=== PATIENT | male | born 1970 | race Caucasian/White ===

== ENCOUNTER → 2023-08-12 14:50 | Outpatient (REF) | payer OTHER, SELFPAY | LOC: DHCBC MAIN 14:50 | PROVIDERS: ATTENDING PHYSICIAN Internal Medicine Cardiovascular Disease | DX: I10 Essential (primary) hypertension (principal); R00.2 Palpitations | CPT/HCPCS: 93306 ==

== ENCOUNTER → 2023-09-21 09:52 | Outpatient (REF) | payer OTHER, SELFPAY | LOC: RAD 09:52 | PROVIDERS: ATTENDING PHYSICIAN Otolaryngology; FAMILY PHYSICIAN Physician Assistant Medical | DX: R13.12 Dysphagia, oropharyngeal phase (principal); K21.9 Gastro-esophageal reflux disease without esophagitis | CPT/HCPCS: 74221 ==

== ENCOUNTER 2023-10-15 07:17 | Emergency (ER) | payer OTHER, SELFPAY ==
[2023-10-15 07:21] VITALS: BP 123/95
[2023-10-15 08:46] VITALS: BP 128/90
--- NOTE | 2023-10-15 09:02 | ED.GENMED ---
History of Present Illness
General
Chief Complaint: Abdominal Pain
Source: patient
Exam Limitations: none
Time Seen by Provider: 10/15/23 08:43
Nursing documentation reviewed up to this point in time: agreed with
Travel History
Have you had any contact with someone who has COVID-19?: No
Do you have any symptoms of coronavirus? Fever > 100 degrees, chills, cough, shortness of breath, sore throat, loss of taste or smell, muscle aches, or headache?: No
History of Present Illness
History of Present Illness:
52-year-old male presents emergency department complaining of left lower quadrant abdominal pain, and mid lower abdominal pain for 3 days. He denies any diarrhea or constipation. He denies any previous pain such as this. It hurts when he walks or
bends over.
Past History
Past History
ED Past Medical History: HTN
ED Past Surgical History: None
Social History
Tobacco: Non-smoker
Alcohol: Chronic alcoholic
Drug: Former user
Review of Systems
Review of Systems
Allergies reviewed?: Yes
All Other Systems: Not applicable
Constitutional: Reports no symptoms
EENT: Reports no symptoms
Respiratory: Reports no symptoms
Cardiac: Reports no symptoms
ABD/GI: Reports abdominal pain
: Reports no symptoms
Musculoskeletal: Reports no symptoms
Skin: Reports no symptoms
Neurological: Reports no symptoms
Endocrine: Reports no symptoms
Hematologic/Lymphatic: Reports no symptoms
Psychiatric: Reports no symptoms
Phy Exam
Physical Exam
Physical Exam:
Physical Exam
General: no apparent distress, not acutely ill
Neck: supple. no meningeal signs. normal posterior pharynx
Heart: s1/s2 regular rate and rhythm, no murmur. equal radial
pulses.
HEENT: Pupils equal round reactive to light, EOMI
Lungs: no acute respiratory distress. clear bilaterally
Abdomen: normal bowel sounds. Left lower quadrant tenderness, no rebound or guarding. No CVAT
Neuro: alert and oriented. no focal neurological deficits cranial nerves II through XII intact
Skin: no rash
Psychiatric: well kept. interactive and cooperative
Extremities: no edema. no calf tenderness. negative homans. good distal pulses
Course
Orders/Labs/Results
Orders:
Orders
10/15/23 09:01
CT Abd/Pel (IV only)-DH only Urgent
Comment:
Reason For Exam: mid and LLQ abdominal pain 3 days
Urinalysis Reflex To Culture Urgent
10/15/23 09:10
Complete Blood Count/With Diff Urgent
Comprehensive Metabolic Panel Urgent
Lipase Urgent
10/15/23 10:45
Amoxicillin 875 mg/Clav 125 mg [Augmentin 875 mg/125 mg] 1 tablet PO NOW STA
Ketorolac [Toradol] 15 mg IV NOW STA
Abnormal Lab Results
10/15/23
09:10
Absolute Monos (auto) 0.7 H 10^3/uL
(0.1-0.6)
Sodium 133 L mmol/L
(135-145)
Creatinine 0.6 L mg/dL
(0.7-1.3)
Glucose 108 H mg/dl
(70-99)
10/15/23 09:10
10/15/23 09:10
Vital Signs
Initial and Last Documented VS:
Initial Vital Signs
Temp Pulse Resp BP Pulse Ox
98.5 F 87 18 123/95 100
10/15/23 07:21 10/15/23 07:21 10/15/23 07:21 10/15/23 07:21 10/15/23 07:21
Last Documented Vital Signs
Temp Pulse Resp BP Pulse Ox
98.5 F 79 16 128/90 96
10/15/23 07:21 10/15/23 08:46 10/15/23 08:46 10/15/23 08:46 10/15/23 08:46
MDM/Problems Addressed
Differential Diagnosis Includes:
diverticulitis, diverticular abscess
MDM/Problems Addressed:
52-year-old male with sigmoid diverticulitis, no abscess. Vital signs stable. Treat with Augmentin, follow-up with GI.
Chronic conditions affecting care: HTN
Acute Exacerbation and/or Progression of Chronic Illness: HTN
*Radiology
Radiology exam reviewed: radiology read reviewed (ct a/p sigmoid diverticulitis)
*Pulse Oximetry
Patient hypoxic: no
*EKG
Interpreted by ED Provider?: NA
*Chief Dispatcher Service Interpretation
Rate: Chief Dispatcher Service- N/A
*Critical Care Note
Total Time (30-74mins, 75-104mins- exclusive of procedures): Not Applicable
Patient Management
Escalation/DeEscalation of care consider admission/obs:
Admit not indicated
ED Attending Note
-
Portions of this chart may have been created with voice recognition software.� Occasional wrong word or��sound alike� substitutions may have occurred due to the inherent limitations of voice recognition software.
Discharge Plan
Departure
Patient Disposition: Home (Routine Discharge)
Date of Disposition: 10/15/23
Time of Disposition: 10:50
Patient with high blood pressure during this ER visit?: Yes
Condition: Good
Discharge Problem:
Diverticulitis of sigmoid colon
Instructions: Diverticulitis (DC), BLOOD PRESSURE
Prescriptions:
New
amoxicillin-pot clavulanate 875-125 mg tablet
1 tab PO BID Qty: 14 0RF
No Action
losartan 25 MG tablet
50 mg PO DAILY
Referrals:
Yolis German PA-C [Family Provider] - Call in 1-3 days for appt
Zhanna Hoskins MD [Active] - Call in 1-3 days for appt
Interventions
Interventions:
*Risk Screen - Suicide Last Done: 10/15/23 08:47
*General Assessment Last Done: 10/15/23 08:47
*Neglect/Abuse Screening Last Done: 10/15/23 08:47
*ED COVID-19 Vaccine History Last Done: 10/15/23 08:47
AW-Ztvmjd-Zkdjfuqdis Assessment Last Done: 10/15/23 08:48
Discharge Date and Time
Print Language: LIBERIAN
[2023-10-15 09:22] LABS: % Basophils 0.6 % (0-2); % Eosinophils 1.7 % (0-6); % Immature Granulocytes 0.2 % (0-0.5); % Lymphocytes 20.7 % (20.5-51.1); % Monocytes 8.5 % (1.7-9.3); % Neutrophils 68.3 % (42.2-75.2); Absolute Basophils 0.1 10^3/uL (0-0.2); Absolute Eosinophils 0.1 10^3/uL (0-0.7); Absolute Lymphocytes 1.8 10^3/uL (1.2-3.4); Absolute Monocytes 0.7 10^3/uL (0.1-0.6); Absolute Neutrophils 5.8 10^3/uL (1.4-6.5); Hematocrit 44.3 % (39.0-52.0); Hemoglobin 15.1 g/dL (13.0-18.0); Mean Corp Hgb Conc. 34.1 g/dL (33.0-37.0); Mean Corpuscular Hgb 29.8 pg (27.0-31.0); Mean Corpuscular Volume 87.4 fL (80.0-94.0); Mean Platelet Volume 8.5 fL (7.4-10.4); Nucleated Red Blood Cells % 0 % (-); Platelet Count 216 10^3/uL (130-400); Red Blood Cell Count 5.07 10^6/uL (4.70-6.10); Red Cell Dist. Width 13.2 % (11.5-14.5); White Blood Cell Count 8.5 10^3/uL (4.8-10.8)
[2023-10-15 09:41] LABS: ALT (SGPT) 17 U/L (0-50); AST (SGOT) 23 U/L (17-59); Albumin 4.2 g/dl (3.5-5.0); Alkaline Phosphatase 67 U/L (38-126); Blood Urea Nitrogen 15 mg/dl (9-20); Calcium 9.3 mg/dl (8.4-10.2); Carbon Dioxide 26 mmol/L (22-30); Chloride 104 mmol/L (98-107); Glucose 108 mg/dl (70-99); Lipase 52 U/L (23-300); Potassium 4.4 mmol/L (3.5-5.1); Sodium 133 mmol/L (135-145); Total Bilirubin 0.8 mg/dl (0.2-1.3); Total Protein 6.9 g/dl (6.3-8.2); eGFR > 60.00
[2023-10-15] MEDS: TORADOL 15 MG IV (10:58)
[2023-10-15] MEDS: AUGMENTIN 875 MG/125 MG 1 TABLET PO (10:58)
[2023-10-15 11:02] VITALS: BP 130/88
== END 2023-10-15 11:05 | disposition home or self-care (01) ==
LOC: EMR 07:17
PROVIDERS: EMERGENCY PHYSICIAN Emergency Medicine; FAMILY PHYSICIAN Physician Assistant Medical
DX: K57.20 Diverticulitis of large intestine with perforation and abscess without bleeding (principal); I10 Essential (primary) hypertension
CPT/HCPCS: 99284; 96374; 74177; 80053; 83690; 85025; Q9967

== ENCOUNTER 2023-11-21 04:58 | Emergency (ER) | payer OTHER, SELFPAY ==
[2023-11-21 05:03] VITALS: BP 151/93
[2023-11-21 05:27] VITALS: BMI 39.6
[2023-11-21 05:48] VITALS: BP 133/88
--- NOTE | 2023-11-21 05:53 | EDRN ---
Pt diagnosed with diverticulitis in October, finished course of augment and felt better for about 1 week. Wednesday morning around 0700, pt developed sharp LLQ abdominal pain. This pain was different from the burning sensation pt had with
diverticulitis. Pt called his doctor and was able to get an appointment on Wednesday. Pt had blood work drawn and was started on cipro and flagyl. Pt felt much improved Wednesday. Pt eating only chicken broth since Wednesday. Around [id number] this
morning, pt woke with sharp LLQ abdominal pain that radiated into his groin which prompted pt to come to the ED. Pt says he say in his car for a bit before deciding to come into the ED for evaluation. Pt denies cp, sob, urinary symptoms,
n/v/d/constipation, fever/chills/cough. While talking with pt, pt noted his pain suddenly disappeared. On physical exam, pt remained pain free.
[2023-11-21 05:58] LABS: % Basophils 0.8 % (0-2); % Eosinophils 2.4 % (0-6); % Immature Granulocytes 0.2 % (0-0.5); % Lymphocytes 30.2 % (20.5-51.1); % Monocytes 9.1 % (1.7-9.3); % Neutrophils 57.3 % (42.2-75.2); Absolute Basophils 0.1 10^3/uL (0-0.2); Absolute Eosinophils 0.1 10^3/uL (0-0.7); Absolute Lymphocytes 1.8 10^3/uL (1.2-3.4); Absolute Monocytes 0.5 10^3/uL (0.1-0.6); Absolute Neutrophils 3.4 10^3/uL (1.4-6.5); Hematocrit 41.9 % (39.0-52.0); Hemoglobin 14.4 g/dL (13.0-18.0); Mean Corp Hgb Conc. 34.4 g/dL (33.0-37.0); Mean Corpuscular Hgb 29.6 pg (27.0-31.0); Mean Corpuscular Volume 86.2 fL (80.0-94.0); Mean Platelet Volume 8.8 fL (7.4-10.4); Nucleated Red Blood Cells % 0 % (-); Platelet Count 221 10^3/uL (130-400); Red Blood Cell Count 4.86 10^6/uL (4.70-6.10); Red Cell Dist. Width 12.7 % (11.5-14.5); White Blood Cell Count 5.9 10^3/uL (4.8-10.8)
[2023-11-21 06:15] LABS: ALT (SGPT) 19 U/L (0-50); AST (SGOT) 33 U/L (17-59); Albumin 4.1 g/dl (3.5-5.0); Alkaline Phosphatase 59 U/L (38-126); Blood Urea Nitrogen 12 mg/dl (9-20); Calcium 9.3 mg/dl (8.4-10.2); Carbon Dioxide 22 mmol/L (22-30); Chloride 103 mmol/L (98-107); Estimated Creatinine Clearance > 125 ml/min; Glucose 95 mg/dl (70-99); Lipase 57 U/L (23-300); Potassium 3.9 mmol/L (3.5-5.1); Sodium 136 mmol/L (135-145); Total Protein 6.6 g/dl (6.3-8.2); eGFR > 60.00
[2023-11-21 06:18] LABS: Urine Albumin Trace (Neg - Trace); Urine Bilirubin Negative (Negative); Urine Character Clear (Clear); Urine Color Amber; Urine Glucose Negative (Negative); Urine Ketone 3+ (Negative); Urine Leukocyte Trace (Negative); Urine Nitrite Negative (Negative); Urine Occult Blood 4+ (Negative); Urine Urobilinogen Negative (Neg - 1+)
--- NOTE | 2023-11-21 06:24 | ED.GENMED ---
History of Present Illness
General
Chief Complaint: Abdominal Pain
Source: patient
Exam Limitations: none
Time Seen by Provider: 11/21/23 06:01
Travel History
Have you had any contact with someone who has COVID-19?: No
Do you have any symptoms of coronavirus? Fever > 100 degrees, chills, cough, shortness of breath, sore throat, loss of taste or smell, muscle aches, or headache?: No
History of Present Illness
History of Present Illness:
This is a 52-year-old male who presents with left-sided abdominal pain. The patient was seen in the emergency department a month ago with diagnosed diverticulitis. He was given Augmentin. He had a string of good days but then had a few days the
week after treatment where he had some off-and-on pain on the left side. He tried to stay on a clear liquid diet. Patient states that the pain would come and go. On Wednesday the morning the pain was severe. He states he called his primary care
doctor. He was about to come back to the emergency department but the pain seemed to dissipate. He would see his primary care doctor as planned Cipro and Flagyl. He denies fevers or vomiting. No dysuria or frequency but does state that he has a
weak stream. Patient does admit that the pain right now is minimal but an hour or 2 ago it was much worse. No vomiting or nausea. Reports his mom had bad diverticulitis.
Past History
Past History
ED Past Medical History: HTN and Other (Diverticulitis,)
ED Past Surgical History: Orthopedic
Social History
Tobacco: Non-smoker
Alcohol: Former
Drug: Former user
Phy Exam
Physical Exam
Physical Exam:
CONSTITUTIONAL Patient alert and oriented to person, place and time. Well-appearing. Vital signs reviewed.
HEAD atraumatic, normocephalic.
EYES eyelids normal to inspection, Pupils equally round and reactive to light, Extraocular muscles intact, Conjunctiva normal, Sclera normal.
NECK normal range of motion, Trachea midline, no jugular venous distention.
RESPIRATORY CHEST No respiratory distress noted, Chest expansion equal, Bilateral breath sounds clear.
CARDIOVASCULAR regular rate and rhythm, Heart sounds normal.
ABDOMEN moderate left lower quadrant tenderness, Bowel sounds normal. No distention.
BACK normal inspection, no obvious deformities
UPPER EXTREMITY range of motion normal, Motor strength normal, no cyanosis, no edema.
LOWER EXTREMITY range of motion normal, Motor strength normal, no cyanosis, no edema.
NEURO Speech normal, No focal motor deficits, [place] coma scale 15, Memory normal, Cranial Nerves intact to screening exam.
SKIN skin warm, dry, and normal in color.
PSYCHIATRIC patient oriented to person place and time, Normal affect.
Course
Orders/Labs/Results
Orders:
Orders
11/21/23 05:24
IV Insert/Care/Rem.- Treatment PRN
11/21/23 05:38
Complete Blood Count/With Diff Urgent
Comprehensive Metabolic Panel Urgent
Lipase Urgent
Urinalysis Reflex To Culture Urgent
Date Specimen was Collected: 11/21/23
Time Specimen was Collected: 05:27
Urine Microscopic Reflex Cult Urgent
11/21/23 05:39
CT Abd/pelvis W Iv Cont Urgent
Comment:
Reason For Exam: Left lower quadrant abdominal pain
Abnormal Lab Results
11/21/23
05:38
Urine Ketones 3+ A
(Negative)
Ur Occult Blood Reflex 4+ A
(Negative)
Leukocyte Esterase Rfl Trace A
(Negative)
Urine RBC 30-40 A /HPF
(0-2)
Urine Bacteria (Reflex) Few A
(Negative)
11/21/23 05:38
11/21/23 05:38
Vital Signs
Initial and Last Documented VS:
Initial Vital Signs
Temp Pulse Resp BP Pulse Ox
98.5 F 78 16 151/93 99
11/21/23 05:03 11/21/23 05:03 11/21/23 05:03 11/21/23 05:03 11/21/23 05:03
Last Documented Vital Signs
Temp Pulse Resp BP Pulse Ox
98.5 F 58 16 133/88 94
11/21/23 05:03 11/21/23 05:48 11/21/23 05:48 11/21/23 05:48 11/21/23 05:48
*Radiology
Radiology exam reviewed: preliminary read by ED provider (kidney stone noted) and radiology read reviewed
*Pulse Oximetry
Patient hypoxic: no
*Critical Care Note
Total Time (30-74mins, 75-104mins- exclusive of procedures): Not Applicable
Data Reviewed
Review of Other/Old Records Reveals: Records (Previous CT report reviewed)
Source: patient
Prescriptions/Medications Considered But Not Given:
Considered IV antibiotics but no evidence of Progressives diverticulitis. Nephrolithiasis noted by CT
Patient Management
Escalation/DeEscalation of care consider admission/obs:
Patient peers well. Given the off-and-on nature there was suspicion for nephrolithiasis. Confirmed by CT. Treat with Flomax, pain control and outpatient follow-up
ED Attending Note
-
Portions of this chart may have been created with voice recognition software.� Occasional wrong word or��sound alike� substitutions may have occurred due to the inherent limitations of voice recognition software.
Discharge Plan
Departure
Patient Disposition: Home (Routine Discharge)
Date of Disposition: 11/21/23
Time of Disposition: 07:17
Patient with high blood pressure during this ER visit?: No
Discharge Problem:
Ureterolithiasis
Instructions: Kidney Stones (DC)
Prescriptions:
New
tamsulosin [Flomax] 0.4 mg capsule
0.4 mg PO HS Qty: 20 0RF
No Action
losartan 100 mg Tablet
100 mg PO DAILY
icosapent ethyl [Vascepa] 1 gram Capsule
1 g PO BID
metronidazole [Flagyl] 500 mg Tablet
500 mg PO TID
ciprofloxacin HCl [Cipro] 500 mg Tablet
500 mg PO BID
tadalafil 20 mg Tablet
20 mg PO DAILY PRN (Reason: sexual activity)
cholecalciferol (vitamin D3) [Vitamin D3] 125 mcg (5,000 unit) Tablet
125 mcg PO DAILY
vitamin K
1 tab PO DAILY
Patient Comments:
pt does not know mg
Referrals:
Pennie Bryan PA [Family Provider] -
Activity Restrictions/Additional Instructions:
Please drink plenty fluids and rest. Please see your doctor and urology in follow-up in the next 3 to 5 days. Use ibuprofen for pain control. Return immediately for fevers, intractable pain, intractable vomiting or any other concerns.
Interventions
Interventions:
*Risk Screen - Suicide Last Done: 11/21/23 05:03
*General Assessment Last Done: 11/21/23 05:03
*Neglect/Abuse Screening Last Done: 11/21/23 05:03
*ED COVID-19 Vaccine History Last Done: 11/21/23 05:13
PP-Lbznmw-Qkwzjxhjsf Assessment Last Done: 11/21/23 05:48
Discharge Date and Time
Print Language: BOLIVIAN
[2023-11-21 07:08] LABS: Urine Bacteria Few (Negative); Urine Red Blood Cell 30-40 /HPF (0-2)
[2023-11-21 08:17] VITALS: BP 126/75
== END 2023-11-21 08:17 | disposition home or self-care (01) ==
LOC: EMR 04:58
PROVIDERS: Emergency Medicine; EMERGENCY PHYSICIAN Emergency Medicine; FAMILY PHYSICIAN Physician Assistant Medical
DX: N13.2 Hydronephrosis with renal and ureteral calculous obstruction (principal)
CPT/HCPCS: 99285; 74177; 80053; 81003; 81015; 83690; 85025; Q9967

== ENCOUNTER → 2024-10-20 14:04 | Outpatient (REF) | payer OTHER, SELFPAY | LOC: DHSLP 14:04 | PROVIDERS: ATTENDING PHYSICIAN Physician Assistant Medical | DX: G47.33 Obstructive sleep apnea (adult) (pediatric) (principal); R06.83 Snoring; E66.9 Obesity, unspecified; Z68.38 Body mass index [BMI] 38.0-38.9, adult; I25.10 Atherosclerotic heart disease of native coronary artery without angina pectoris; L40.9 Psoriasis, unspecified; R09.02 Hypoxemia | CPT/HCPCS: 95800 ==

== ENCOUNTER 2024-12-17 00:18 | Observation (INO) | payer OTHER, SELFPAY ==
[2024-12-16 18:57] VITALS: BP 159/102
[2024-12-16 19:14] VITALS: BP 133/89
--- NOTE | 2024-12-16 19:28 | ED.GENMED ---
History of Present Illness
General
Chief Complaint: Weakness
Time Seen by Provider: 12/16/24 19:11
History of Present Illness
History of Present Illness:
Patient is a 53-year-old male with history of CAD, hypertension, hyperlipidemia presenting to the emergency department with word finding difficulty that is now resolved. Patient states that around 5:30 PM he noticed that he was having word finding
difficulty was using the wrong words and was having difficulty with writing. He does state that he was having some repetitive words as well. He states this is his third episode. Per chart review he was seen here in 2020 for the same however he
did not have any outpatient workup completed afterwards. No numbness tingling. No weakness. No chest pain. No shortness of breath.
He does note that he barely ate any food and only had 1 glass of water today. He does state that he was walking his dog when the symptoms occurred.
Past History
Past History
ED Past Medical History: HTN and Other (Diverticulitis,)
ED Past Surgical History: Orthopedic
Social History
Tobacco: Non-smoker
Alcohol: Former
Drug: Former user
Phy Exam
Physical Exam
Physical Exam:
GENERAL: in no acute distress
HEENT: normocephalic, extraocular movements intact, moist oral mucosa
NECK: normal inspection
RESPIRATORY: no respiratory distress, clear to auscultation bilaterally
CARDIOVASCULAR: regular rate and rhythm
ABDOMEN/: soft, non-distended, non-tender to palpation, no rebound or guarding
EXTREMITIES: non-tender, no edema/swelling
NEUROLOGIC: alert and oriented x 3, cranial nerves II-XII intact, right upper extremity strength 5/5, left upper extremity strength 5/5, right lower extremity strength 5/5, left lower extremity strength 5/5, normal sensation to light touch, normal
voixlh-[id number]-sxrh and gxvy-ek-fwop, gait not tested formally
SKIN: warm
Scores
NIH Stroke Score
Level of Consciousness: 0 - Alert
LOC Questions: 0-Answers both correctly
LOC Commands: 0-Performs both correctly
Best Horizontal Gaze: 0-Normal
Visual [place]: 0=Normal, no visual loss
Facial Palsy: 0=Normal, symmetrical
Motor - Right Arm: 0=No drift 10 seconds
Motor - Left Arm: 0=No drift 10 seconds
Motor - Right Le-No drift 5 seconds
Motor - Left Le-No drift 5 seconds
Limb Ataxia: 0-Absent
Sensation: 0-Normal
Best Language: 0-No aphasia
Dysarthria: 0-Normal
Extinction and Inattention: 0-No abnormality
NIH Total Score:: 0
Course
Orders/Labs/Results
Orders:
Orders
12/16/24 19:00
Electrocardiogram (*1) Urgent
Reason for Study: Fatigue / Weakness
EKG- Treatment ONCE
12/16/24 19:28
CT Head W/o Iv Contrast Urgent
Comment:
Reason For Exam: word finding difficulty, resolved
12/16/24 19:35
Basic Metabolic Panel Urgent
Complete Blood Count/With Diff Urgent
Abnormal Lab Results
12/16/24
19:35
Chloride 109 H mmol/L
(98-107)
Glucose 102 H mg/dl
(70-99)
12/16/24 19:35
12/16/24 19:35
Vital Signs
Initial and Last Documented VS:
Initial Vital Signs
Temp Pulse Resp BP Pulse Ox
98.2 F 86 18 159/102 99
12/16/24 18:57 12/16/24 18:57 12/16/24 18:57 12/16/24 18:57 12/16/24 18:57
Last Documented Vital Signs
Temp Pulse Resp BP Pulse Ox
98.2 F 80 20 150/78 98
12/16/24 18:57 12/16/24 20:57 12/16/24 20:57 12/16/24 20:57 12/16/24 20:57
MDM/Problems Addressed
Differential Diagnosis Includes:
Patient is a 53-year-old male with history of CAD, hypertension, hyperlipidemia presenting to the emergency department with worsening difficulty that started at 530 but has now resolved. On arrival vitals are notable for hypertension and exam shows
no neurodeficits. Concern for TIA especially given that this is his third time he does have a risk factors of. Could be cerebral hypoperfusion given the lack of p.o. and it occurred while he was walking his dog. Will check blood work and CT scan.
EKG per my interpretation normal sinus rhythm. Patient will need admission for further TIA workup.
*Pulse Oximetry
Patient hypoxic: no (99)
*Critical Care Note
Total Time (30-74mins, 75-104mins- exclusive of procedures): Not Applicable
Update Note
Update Note:
CT scan per my interpretation with no obvious hemorrhage or large ischemic infarct. Per the preliminary read no concern for acute ischemia. Given that patient has a risk factors and this is his third episode patient will need admission for MRI and
further testing. Discussed with hospitalist who excepted patient to their service
ED Attending Note
-
Portions of this chart may have been created with voice recognition software.� Occasional wrong word or��sound alike� substitutions may have occurred due to the inherent limitations of voice recognition software.
Discharge Plan
Departure
Patient Disposition: Admit
Date of Disposition: 12/16/24
Time of Disposition: 21:53
Presentation/result/management discussed w/ accepting MD/DO: Hospitalist
Discharge Problem:
Neurological deficit, transient
Prescriptions:
No Action
losartan 100 mg Tablet
100 mg PO DAILY
icosapent ethyl [Vascepa] 1 gram Capsule
1 g PO BID
metronidazole [Flagyl] 500 mg Tablet
500 mg PO TID
ciprofloxacin HCl [Cipro] 500 mg Tablet
500 mg PO BID
tadalafil 20 mg Tablet
20 mg PO DAILY PRN (Reason: sexual activity)
cholecalciferol (vitamin D3) [Vitamin D3] 125 mcg (5,000 unit) Tablet
125 mcg PO DAILY
vitamin K
1 tab PO DAILY
Patient Comments:
pt does not know mg
tamsulosin [Flomax] 0.4 mg capsule
0.4 mg PO HS Qty: 20 0RF
Referrals:
Eloisa German MD [Family Provider, Gynecology]
Interventions
Interventions:
*Risk Screen - Suicide Last Done: 12/16/24 18:57
*General Assessment Last Done: 12/16/24 18:57
*Neglect/Abuse Screening Last Done: 12/16/24 18:57
ED- Cardiac Assessment Last Done: 12/16/24 19:12
ED- Neurological Assessment Last Done: 12/16/24 19:12
ED- Pulmonary Assessment Last Done: 12/16/24 19:12
Discharge Date and Time
Print Language: CROATIAN
[2024-12-16 19:54] LABS: % Basophils 0.5 % (0-2); % Eosinophils 2.1 % (0-6); % Immature Granulocytes 0.2 % (0-0.5); % Lymphocytes 36.5 % (20.5-51.1); % Monocytes 7.6 % (1.7-9.3); % Neutrophils 53.1 % (42.2-75.2); Absolute Eosinophils 0.1 10^3/uL (0-0.7); Absolute Lymphocytes 2.4 10^3/uL (1.2-3.4); Absolute Monocytes 0.5 10^3/uL (0.1-0.6); Absolute Neutrophils 3.5 10^3/uL (1.4-6.5); Hemoglobin 14.8 g/dL (13.0-18.0); Mean Corp Hgb Conc. 35.2 g/dL (33.0-37.0); Mean Corpuscular Hgb 29.8 pg (27.0-31.0); Mean Corpuscular Volume 84.7 fL (80.0-94.0); Mean Platelet Volume 8.5 fL (7.4-10.4); Nucleated Red Blood Cells % 0 % (-); Platelet Count 239 10^3/uL (130-400); Red Blood Cell Count 4.96 10^6/uL (4.70-6.10); Red Cell Dist. Width 13.1 % (11.5-14.5); White Blood Cell Count 6.6 10^3/uL (4.8-10.8)
[2024-12-16 20:00] VITALS: BP 140/99
[2024-12-16 20:16] LABS: Blood Urea Nitrogen 20 mg/dl (9-20); Calcium 9.8 mg/dl (8.4-10.2); Carbon Dioxide 23 mmol/L (22-30); Chloride 109 mmol/L (98-107); Glucose 102 mg/dl (70-99); Potassium 4.1 mmol/L (3.5-5.1); Sodium 140 mmol/L (135-145); eGFR > 60.00
[2024-12-16 20:57] VITALS: BP 150/78
--- NOTE | 2024-12-16 22:06 | HPS.HSE ---
Family Physician
-
Family Physician: Eloisa German
Chief Complaint
-
Word-findings difficulty
History of Present Illness
The patient is a 53-year-old gentleman with past medical history significant for hypertension, hyperlipidemia, coronary artery disease, who presents to the emergency department secondary to word finding difficulty. It is resolved by the time he
came to the emergency department. Symptoms started at approximately 5:30 PM when he noticed he was having trouble with word finding and using the wrong words, and with repetitive words. Symptoms occurred while he was walking his dog today. He was
also having difficulty with writing. This has been his third episode, and has not had formal workup in the outpatient setting. He denies any motor symptoms at this time, no numbness no tingling no headache no chest pain no dyspnea. Patient does
not take daily aspirin. Exercise nuclear stress test July 2023 was negative for ischemia on EKG, normal sestamibi perfusion imaging, ejection fraction of 52%. The patient took 2 baby aspirin at home when this event was happening.
CT scan of the head is negative for acute pathology. His blood pressure on arrival was elevated at 159/102 mmHg. EKG is normal sinus rhythm.
Medical History
Past Medical History
Past Medical History: Reports HTN and Hypercholesterolemia
Past Surgical History: Reports Orthopedic and Other
Social History
Tobacco: Non-smoker
Alcohol: Former (Sober for 13 years)
Drug: Former User (Sober for 13 years)
Family History
Family History: CAD (Mom 2022 ), Hypertension and Sudden (Uncle from [place] in his 30s)
Allergies / Home Medications
Allergies reflects when Allergies were last updated in [facility] [employer].
Home Medications with original date entered in [facility] [employer]
Allergy/Medication List:
Allergies
Allergy/AdvReac Type Severity Reaction Status Date / Time
No Known Allergies Allergy Verified 11/21/23 05:28
Home Medications
cholecalciferol (vitamin D3) 125 mcg (5,000 unit) tablet (Vitamin D3) 125 mcg PO DAILY 11/21/23
icosapent ethyl 1 gram capsule (Vascepa) 1 g PO BID 11/21/23
losartan 100 mg tablet 100 mg PO DAILY 11/21/23
tadalafil 20 mg tablet 20 mg PO DAILY PRN sexual activity 11/21/23
tamsulosin 0.4 mg capsule (Flomax) 0.4 mg PO HS #20 caps 11/21/23
vitamin K 1 tab PO DAILY 11/21/23
Review of Systems
-
A 12 point ROS was completed and negative except as noted: Yes
Physical Exam
Vital Signs
Vital Signs
Temp Pulse Resp BP Pulse Ox
98.2 F 80 20 150/78 98
12/16/24 18:57 12/16/24 20:57 12/16/24 20:57 12/16/24 20:57 12/16/24 20:57
Physical Exam
General: Well Developed, Well Nourished, No Apparent Distress, Comfortable and Conversant
HEENT: NormoCephalic, Anicteric and Moist mucous membranes
Respiratory: Clear
Cardiac: S1/S2 and Regular Rhythm
GI: Soft, Non Tender and Non Distended
Musculoskeletal: No Clubbing, No Cyanosis and No Edema
Skin: Warm and Dry
Neuro: AO x 3, No Motor Deficits and Nonfocal/grossly intact
Psych: Calm
Laboratory Results
-
12/16/24 19:35
12/16/24 19:35
Data Reviewed
-
CT Scan: Image Personally Visualized and interpreted (per ED physician no acute disease, report pending), Discussed with Physician and Discussed with Patient
Lab Data: Labs Reviewed by me
Impression/Plan
-
IMPRESSION:
The patient is a 53-year-old gentleman with past medical history significant for hypertension, hyperlipidemia, coronary artery disease, who presents to the emergency department secondary to word finding difficulty. It is resolved by the time he
came to the emergency department. Symptoms started at approximately 5:30 PM when he noticed he was having trouble with word finding and using the wrong words, and with repetitive words. Symptoms occurred while he was walking his dog today. He was
also having difficulty with writing. This has been his third episode, and has not had formal workup in the outpatient setting. He denies any motor symptoms at this time, no numbness no tingling no headache no chest pain no dyspnea. Patient does
not take daily aspirin. Exercise nuclear stress test July 2023 was negative for ischemia on EKG, normal sestamibi perfusion imaging, ejection fraction of 52%.
CT scan of the head is negative for acute pathology. His blood pressure on arrival was elevated at 159/102 mmHg. EKG is normal sinus rhythm.
#Concern for TIA versus CVA, symptoms are resolved at this time, risk factors include HTN, HLD, family history
-admit for stroke work up
-obs status
-tele monitoring, MRI brain, carotid Doppler's, neurochecks
- Continue aspirin daily for now, hold off on statin therapy at this time
#HLD
- He had recent outpatient cholesterol panel through [facility] on September 22, 2024 that showed total cholesterol of 299, HDL of 71, triglycerides of 115, LDL of 202, cholesterol HDLC ratio of 4.2, non-HDL cholesterol 228
- pt is seeing his outpatient physician related to his cholesterol, who recommended statin therapy however the patient has refused statin therapy at this time.
# Hypertension, essential
- Continue home losartan and monitor his blood pressure
DVT prophylaxis-SCDs
Full code
[2024-12-16 22:44] VITALS: BP 142/70
[2024-12-16 23:56] VITALS: BP 104/63
[2024-12-17] VITALS (7 sets, daily range): BP systolic 117–137; BP diastolic 77–85; PULSE 63; O2SAT 97; BMI 38.1; BMI 37.0
--- NOTE | 2024-12-17 05:39 | PTCARENOTE ---
Pt stating chronic issues with swallowing at baseline with HX of VSE in past. Swallow screen completed with no issue, pt stating 'I am not planning on eating while I am here anyway'. Denies need for speech eval. RN educated pt and encouraged soft
food choices. Pt agreeable.
[2024-12-17 06:15] LABS: Blood Urea Nitrogen 17 mg/dl (9-20); Calcium 9.4 mg/dl (8.4-10.2); Carbon Dioxide 30 mmol/L (22-30); Chloride 109 mmol/L (98-107); Estimated Creatinine Clearance 121 ml/min; Glucose 112 mg/dl (70-99); Potassium 4.4 mmol/L (3.5-5.1); Sodium 142 mmol/L (135-145); eGFR > 60.00
[2024-12-17 07:42] LABS: HDL Cholesterol 46 mg/dl; LDL Cholesterol, Calculated 135 mg/dl; Total Cholesterol 202 mg/dl (50-199); Triglyceride 108 mg/dl (10-149); Very Low Density Lipoprotein 21 mg/dl (0-30)
--- NOTE | 2024-12-17 07:46 | CON.NEURO ---
Neuro Assessment/Plan
Assessment
50-70% diameter stenosis in the clinoid segment of the right ICA.
Less than 50% diameter stenosis in the intracranial left ICA.
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
Sudden onset of speech change and speech arrest, 5 years ago similar event with headache then, not now.
Plan
Switch MRA head and neck to CTA head and neck for more immediate testing and to ensure that the patient does not develop claustrophobia which would limit testing
Continue newly initiated aspirin, likely lifelong especially in light of moderate stenosis intracranially
Continue atorvastatin goal of 80 mg daily due to LDL greater than 100 and described torturous arteries as above
Consider routine medication for headache prevention in future if repeated events are taking place with decreased interval
Medical educational materials to be provided
Goal of normotension
Will follow as needed
Consultation
Order
Date of Consultation: 12/17/24
Requesting Provider: Hospitalists
Reason for Consult: Speech changes
Subjective/Objective
Subjective Data
Date of Service: December 17, 2024
Right handed
Patient presented to this [facility]'s emergency department with an acute onset of speech change. In contrary to the medical record which was another source of information, the patient reports that he had a single episode which was similar once in
2019 at which time the patient also experienced in addition to difficulty with word finding was a sense of visual change and central scotoma. In 2027 the patient had complete resolution of symptoms after approximately 20 minutes. The patient
reports that episode leading to his return to the emergency department also resolved after a similar amount of time. The patient did not experience head discomfort during this episode although he did with the first episode. No additional symptoms.
No known modifying factors except that the patient does admit to significant stress today.
Objective Data
Vital Signs
Temp Pulse Resp BP Pulse Ox
36.9 C 65 18 137/83 100
12/17/24 03:07 12/17/24 03:07 12/17/24 03:07 12/17/24 03:07 12/17/24 03:07
Lab Results
12/16/24 19:35
12/17/24 04:56
Sodium 142 mmol/L (135-145) 12/17/24 04:56
Potassium 4.4 mmol/L (3.5-5.1) 12/17/24 04:56
BUN 17 mg/dl (9-20) 12/17/24 04:56
Glucose 112 mg/dl (70-99) H 12/17/24 04:56
Calcium 9.4 mg/dl (8.4-10.2) 12/17/24 04:56
LDL Cholesterol, Calc 135 mg/dl 12/17/24 04:56
Patient Allergies
No Known Allergies Allergy (Verified 11/21/23 05:28)
CVA Assessment
Onset of Stroke Symptoms
Onset of symptoms known: Yes
Date of onset of symptoms: 12/16/24
Physical Exam
-
General: No Apparent Distress and Appears Stated Age
Eyes: OU Absent Papilledema, Round OU, [place] Conjunctivae and No Ptosis
HEENT: Anicteric and Moist Mucous Membranes
Neck: Full Range of Motion
Respiratory: No Dyspnea
Cardiac: No JVD
GI: Non-distended
Skin: Unremarkable
Extremities: No Clubbing, No Cyanosis and No Edema
Psych: Intact Judgement/Insight
Extended Neurological Exam
Mood & Affect: Mood Unremarkable and Affect Unremarkable
Attention Span & Concentration: Awake, Alert, Interactive and No Difficulty with 2 Step Request
Memory: Unremarkable
Tremor: Hand Tremor Absent and Head Tremor Absent
Speech: Quality Unremarkable and Quantity Unremarkable
Cranial Nerve II: Left Eye: Pupillary Reactivity Unremarkable, Pupillary Size Unremarkable and Visual [place] Intact
Cranial Nerve II: Right Eye: Pupillary Reactivity Unremarkable, Pupillary Size Unremarkable and Visual [place] Intact
Cranial Nerves III, IV, : Extraocular Movement: Extraocular Movement Full in all Directions
Cranial Nerve VII: Facial Symmetry: Normal Facial Symmetry
Cranial Nerve VIII: Hearing: Unremarkable Hearing to Normal Conversational Volume
Cranial Nerves IX, X: Palate Movement: Palate Elevation Symmetric
Cranial Nerve XI: Shoulder Shrug: Unremarkable
Cranial Nerve XII: Tongue Protusion: Midline
Muscle Strength, Overall: Full Throughout
Muscle Bulk & Tone: Bulk Unremarkable and Tone Unremarkable
Pronator Drift: No Drift in Upper Extremities
Deep Tendon Reflexes: Unremarkable Throughout
Touch Sensation: Unremarkable
Coordination: [id number] Testing Unremarkable
Babinski Sign: Absent Bilaterally
Gait & Station: Romberg Test Negative
Data Reviewed
-
Labs: Report Reviewed
Reviewed with: Physician
Old Records: Summarized
Medications
-
Active Medications
Generic Name Dose Route Start Last Admin
Trade Name Freq PRN Reason Stop Dose Admin
Acetaminophen 650 mg 12/17/24 01:00
Acetaminophen 650 Mg Rectal Suppository RECTAL 01/14/25 00:59
Q4HPRN PRN
OLIVEROS, mild pain, or temp >100.4F
Acetaminophen 650 mg 12/17/24 01:00
Acetaminophen 325 Mg Tablet PO 01/14/25 00:59
Q4HPRN PRN
OLIVEROS, mild pain, or temp >100.4F
Aspirin 81 mg 12/17/24 08:00
Aspirin 81 Mg Chewable Tablet PO 01/14/25 07:59
DAILY RENÉE
Losartan Potassium 100 mg 12/17/24 08:00
Losartan 100 Mg Tablet PO 01/14/25 07:59
DAILY RENÉE
Sodium Chloride 0 flush 12/16/24 23:00
Sodium Chloride 0.9% (Flush) Syringe IV 01/13/25 22:59
PER PROTOCOL RENÉE
Home Medications
�Medication �Instructions �Recorded
cholecalciferol (vitamin D3) 125 125 mcg PO DAILY 11/21/23
mcg (5,000 unit) tablet (Vitamin
D3)
icosapent ethyl 1 gram capsule 1 g PO BID 11/21/23
(Vascepa)
losartan 100 mg tablet 100 mg PO DAILY 11/21/23
tadalafil 20 mg tablet 20 mg PO DAILY PRN sexual activity 11/21/23
vitamin K 1 tab PO DAILY 11/21/23
Past History
Past History
ED Past Medical History: CAD, HTN, Hypercholesterolemia and Other (Diverticulitis, obstructive sleep apnea alcohol use disorder, narcotic addiction, erectile dysfunction)
ED Past Surgical History: Orthopedic (Left hand crush injury with repair) and Other (Umbilical hernia repair 2020)
Social History
Tobacco: Non-smoker
Alcohol: Former
Drug: Former user
Family History
Family History: Other (Reviewed and noncontributory)
[2024-12-17 08:12] LABS: TSH Reflex To Free T4 3.85 uIU/ml (0.47-4.68)
[2024-12-17] MEDS: FLUSH (NSS) 1 FLUSH IV (08:31)
[2024-12-17] MEDS: COZAAR 100 MG PO (08:31)
[2024-12-17] MEDS: LOW STRENGTH ASPIRIN 81 MG PO (08:31)
--- NOTE | 2024-12-17 09:08 | PTOTSP ---
PT evaluation completed. Patient independent with all aspects of PT assessment. Anticipate he will be safe for discharge home with no needs pending results of MRI.
--- NOTE | 2024-12-17 09:55 | W.PN.HOSP.TC ---
Today's Communication/Plan
-
see PN
Assessment / Plan
Assessment / Plan
53yo M with PMHx of aortic root dilation, HLD, family Hx of early ID, HTN, came with episode of word finding difficulty, transient, when he was not able to pronounce correct words and when trying to write -could not complete sentence appropriately
and it took a long time to write down only 3 words. Patient felt emotionally anxious before the episode and was not appropriewtly hydrating and eating on the day when it happened due to tight work schedule. Admitted for TIA/CVA w/u. Telemetry
without clinically significant arrhythmia, patient declined statin, was started on ASA.
A/P:
#TIA/CVA
ASA, discuss statin or zetia appropriateness since LDL 135
MRI brain
neurochecks
TSH WNL
HGbA1c pending
Neurology consult
CTA head/neck as per neurology
cont telemetry
Echo: might need to repeat with bubble study - defer to neurologist if outpatient, but as of 2023: Interatrial septum is intact with no evidence of shunting by color flow Doppler.
#Aortic root dilation
#HLD
#Essential HTN
Follows with information technology manager
DVT ppx SCDs
Full code
I have spent at least 58min reviewing chart, test results, communication with consultants and providing direct patient care
Anticipated Discharge: Within 24 hours
Subjective/Interval History
-
Date of Service: December 17, 2024
Objective Data
-
Labs:
Laboratory Results
12/17/24
04:56
Sodium 142
Potassium 4.4
Chloride 109 H
Carbon Dioxide 30
BUN 17
Creatinine 0.9
Glucose 112 H
Calcium 9.4
Vital Signs:
Vital Signs
Temp Pulse Resp BP Pulse Ox
97.8 F 61 18 122/85 97
12/17/24 08:47 12/17/24 08:47 12/17/24 08:47 12/17/24 08:47 12/17/24 08:47
Review of Systems
-
History Source: Patient
All other systems: Reviewed and negative
Physical Exam
-
General: No Apparent Distress
HEENT: Normocephalic
Respiratory: Clear to Auscultation
Cardiac: Regular Rhythm
Neuro: Awake, Alert, Oriented, AO x 3 and No Motor Deficits
Psych: Calm
--- NOTE | 2024-12-17 10:41 | PTOTSP ---
Speech therapy
Presentation: Patient was oriented and followed commands WNL. Patient's speech and language was WNL during conversation. Patient denied any communicative deficits at this time. Of note, during the event 12/16, patient experienced word finding
difficulty which has since resolved; per patient.
Swallowing Function: SEQUINS WINDER observed patient with several bites of regular consistency solids and sips (cup) of thin liquids in which patient appeared to tolerate as he did not exhibit any overt clinical s/sx of aspiration or difficulty with
mastication.
Swallowing Complaints: Patient shared with SEQUINS WINDER that he experienced food getting 'stuck' in his 'throat' for several years now. Patient has seen ENT which patient stated ENT declared his functioning to be WNL. Patient was seen on 09/21/23 for
esophageal xray at in which the report states 'IMPRESSION:
Small hiatal hernia without demonstrable gastroesophageal reflux.'
Recommendations and eduction to patient: SEQUINS WINDER reviewed recommendations for consideration of VSE (outpatient) to quantify his complaints as he expressed it has been negatively impacting his ability to eat the foods he enjoys. SEQUINS WINDER reviewed safe
swallowing strategies, GERD precautions, and the importance of hydration. Of note, patient is a high level caffeine drinker (noted an iced coffee with 2 shots of espresso at bedside) and often does not drink water throughout the day. SEQUINS WINDER stressed
the importance of hydration in relation to oral care, esophageal motility, and swallowing function. Patient verbalized an understanding of the information and agreed with the plan.
Recommendations:
1) Continuation of regular consistency solids and thin liquids
2) Aspiration precautions
3) Reflux precautions
4) Consideration of VSE outpatient to quantify chronic complaints
Plan: SEQUINS WINDER will continue to follow; pending hospitalization.
--- NOTE | 2024-12-17 11:28 | PTOTSP ---
Presents to OT with grossly intact vision and cognition; b/l UE AROM, strength and coordination is WNL. Pt is currently at independent level with all self care and functional mobility without AD. No further skilled OT indicated at this time.
--- NOTE | 2024-12-17 12:31 | W.DCSUMMARY ---
Discharge Summary
Discharge Data
Date of Admission: 12/17/24
Date of Discharge: 12/17/24
-
Pending Results: No
Hospital Course
53yo M with PMHx of aortic root dilation, HLD, family Hx of early [place], HTN, came with episode of word finding difficulty, transient, when he was not able to pronounce correct words and when trying to write -could not complete sentence appropriately
and it took a long time to write down only 3 words. Patient felt emotionally anxious before the episode and was not appropriewtly hydrating and eating on the day when it happened due to tight work schedule. Admitted for TIA/CVA w/u. Telemetry
without clinically significant arrhythmia, patient declined statin, was started on ASA. Eventually as MRI brain did not show any stroke and neurologist assessment contributed patient presentation to migraine- ASA was recommended to be stopped. CTA
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
advised statin, outpatient VascSx consult (on non-urgent basis since <70% stenosis without CVA) , C6-C7 mild spinal cord compression and central canal stenosis (which is asymptomatic) - Outpatient spinal specialist advised. Patient verbalized
understanding of the instructions and agreement with the plan after detailed explanation of these issuesMedically stable to be d/c home
I have spent at least 58min reviewing chart, test results, communication with consultants and providing direct patient care
Patient was managed for:
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
#50-70% diameter stenosis in the clinoid segment of the right ICA
#Less than 50% diameter stenosis in the intracranial left ICA
#C6-C7 mild spinal cord compression and central canal stenosis
#TIA/CVA ruled out
#Migraine
#Aortic root dilation
#HLD
#Essential HTN
Discharge Plan
-
Patient Disposition: Home (Routine Discharge)
Discharge Diagnosis/Procedures: migraine
Diet: Low Cholesterol
Activity: As tolerated
Referrals:
[facility] [Provider Group] - in one to two months
Referral Note: Cervical spine stenosis
Elosia German MD [Family Provider, Gynecology]
Marcus Torres MD [Active, Vascular Surgery] - in three to four weeks
Referral Note: carotid stenosis
Prescriptions:
New
atorvastatin [Lipitor] 10 mg tablet
10 mg PO DAILY Qty: 30 0RF
aspirin 81 mg tablet
81 mg PO DAILY Qty: 30 0RF
Continued
losartan 100 mg Tablet
100 mg PO DAILY
icosapent ethyl [Vascepa] 1 gram Capsule
1 g PO BID
tadalafil 20 mg Tablet
20 mg PO DAILY PRN (Reason: sexual activity)
cholecalciferol (vitamin D3) [Vitamin D3] 125 mcg (5,000 unit) Tablet
125 mcg PO DAILY
vitamin K
1 tab PO DAILY
Patient Comments:
pt does not know mg
Discharge Orders:
Discharge Patient (As Directed); Ordered 12/17/24
Ordered By: Lai Shaw
Discharge Date and Time
Print Language: KAZAKH
[2024-12-17 13:09] LABS: Glycohemoglobin (HgbA1c) 5.5 % (4.0-5.6)
--- NOTE | 2024-12-17 13:38 | W.PN.UPDATE ---
Update Note
Progress Note Update
#6 mm low-attenuation nodule in the midpole the right lobe of the thyroid gland - to follow with PCP with US mentoring in 6mo
--- NOTE | 2024-12-17 13:52 | CM ---
manager rfid reviewed patent's chart and patient was admitted under OBS, OBS letter provided to patient, Patient lives with his fiancee in a multilevel home, with son and stepson, is independent with adl's and ambulation, no dme, patient drives,
home today no needs.
PCP: Dr. German
Pharmacy: [facility] [place].
Plan; Home no needs.
== END 2024-12-17 15:04 | disposition home or self-care (01) ==
LOC: 4 EAST ACU 00:18
PROVIDERS: ADMITTING PHYSICIAN Internal Medicine; ATTENDING PHYSICIAN Internal Medicine; CONSULT PHYSICIAN Psychiatry & Neurology Neurology; EMERGENCY PHYSICIAN Student in an Organized Health Care Education/Training Program; FAMILY PHYSICIAN Obstetrics & Gynecology Gynecology
DX: G43.909 Migraine, unspecified, not intractable, without status migrainosus (principal); R53.1 Weakness; E78.00 Pure hypercholesterolemia, unspecified; I10 Essential (primary) hypertension; Z79.899 Other long term (current) drug therapy; M48.02 Spinal stenosis, cervical region
CPT/HCPCS: 70450; 70496; 70498; 70551; 80048; 80061; 83036; 84443; 85025; 87070; 92610; 93005; 97161; 97166; 99285; G0378; Q9967